=== PATIENT | male | born 1940 | race Caucasian/White ===

== ENCOUNTER 2017-07-06 10:08 | Day surgery (SDC) | payer OTHER ==
--- NOTE | 2017-07-06 11:48 | PDANEPAE ---
ANE History of Present Illness colon ca s/f polp resection ANE Past Medical History - Cardiovascular History Hx Hypertension: No Hx Arrhythmias: No Hx Chest Pain: No Hx Coronary Artery / Peripheral Vascular Disease: No Hx CHF / Valvular Disease: No Hx Palpitations: No - Pulmonary History Hx COPD: No Hx Asthma/Reactive Airway Disease: No Hx Recent Upper Respiratory Infection: No Hx Oxygen in Use at Home: No Hx Sleep Apnea: No Sleep Apnea Screening Result - Last Documented: Negative - Neurologic History Hx Cerebrovascular Accident: No Hx Seizures: No Hx Dementia: No - Endocrine History Hx Diabetes: No - Renal History Hx Renal Disorders: Yes Renal History Comment: NOCTURIA - Neurological & Psychiatric Hx Hx Neurological and Psychiatric Disorders: Yes Neurological / Psychiatric History Comment: SCHIZOPHRENIC - Cancer History Hx Cancer: Yes Cancer History Comment: COLON - Congenital Disorder History Hx Congenital Disorders: No - GI History Hx Gastrointestinal Disorders: Yes Gastrointestinal History Comment: HX OF COLON CA AND POLYPS - Other Health History Other Health History: 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 COLECTOMY FOR CA. COLONOSCOPY. TONSILLECTOMY ANE Review of Systems Review of Systems: - Exercise capacity METS (RN): 4 METS ANE Patient History - Allergies Allergies/Adverse Reactions: Penicillins Allergy (Verified 05/26/17 13:42) - Home Medications Home medications: home medication list seen and reviewed Home Medications: Risperdal HS 05/26/17 [Last Taken 07/04/17] - NPO status NPO Status: no food or drink >8 hours NPO Since - Liquids (Date): 07/06/17 NPO Since - Liquids (Time): 02:15 NPO Since - Solids (Date): 07/04/17 - Anes Hx Anes Hx: no prior problems - Smoking Hx Smoking Status: Never smoked - Alcohol Use Alcohol Use: None - Family Anes Hx Family Anes Hx: none ANE Labs/Vital Signs - Vital Signs Blood Pressure: 124/79 Heart Rate: 79 Respiratory Rate: 20 O2 Sat (%): 96 Height: 182.88 cm Weight: 90.718 kg ANE Physical Exam - Airway Neck exam: FROM Mallampati Score: Class 2 Mouth exam: normal dental/mouth exam - Pulmonary Pulmonary: no respiratory distress - Cardiovascular Cardiovascular: regular rate and rhythym - ASA Status ASA Status: II ANE Anesthesia Plan Anesthesia Plan: GA with mask (Propofol)
[2017-07-06] MEDS ORDERED: fentaNYL 100 MCG/2 ML INJ ONE (11:55)
[2017-07-06] MEDS ORDERED: LIDOCAINE 2% 100 MG/5 ML SYR ONE (11:55)
[2017-07-06] MEDS ORDERED: PROPOFOL/EMULSION 500 MG/50 ML BOTTLE IV ONE (11:55)
[2017-07-06] MEDS ORDERED: PHENYLEPHRINE HCL 100 MCG/ML SYR ONE ×2 (12:07)
[2017-07-06] MEDS ORDERED: LABETALOL HCL 50 MG/10 ML SYR IVP PRN (12:30)
[2017-07-06] MEDS ORDERED: ALBUTEROL 3 ML DEYVIAL IH PRN (12:30)
[2017-07-06] MEDS ORDERED: ONDANSETRON 4 MG/2 ML VIAL IVP PRN (12:30)
[2017-07-06] MEDS ORDERED: MEPERIDINE 25 MG/ML SYR IVP PRN (12:30)
[2017-07-06] MEDS ORDERED: DEXAMETHASONE 4 MG/ML VIAL IVP PRN (12:30)
[2017-07-06] MEDS ORDERED: METOCLOPRAMIDE 10 MG/2 ML VIAL IVP PRN (12:30)
[2017-07-06] MEDS ORDERED: fentaNYL 100 MCG/2 ML INJ IVP PRN (12:30)
[2017-07-06] MEDS ORDERED: PROMETHAZINE HCL 25 MG/ML INJ IVP PRN (12:30)
[2017-07-06] MEDS ORDERED: NALOXONE HCL 0.4 MG/ML INJ IVP PRN (12:30)
[2017-07-06] MEDS ORDERED: LR 500 ML IV PRN (12:30)
[2017-07-06] MEDS ORDERED: INDOMETHACIN 50 MG SUPP PR PRN (12:53)
--- NOTE | 2017-07-06 12:53 | PDGENHP ---
History & Physical Chief Complaint: polyp History of Present Illness: 76 year old male presents for EMR of a complex as polyp Pertinent Past, Social, Family History: PMHx: schizo. FamHx: polyps. SoHx: no tobacco Relevant Physical Exam: HEENT: anicteric. CV: RRR +s1s2. Lungs: CTAB. Abd: soft, nt, + bs Cardiorespiratory Assessment: asa 2 Mall2
[2017-07-06] MEDS ORDERED: NS 500 ML IV SCH (13:00)
--- NOTE | 2017-07-06 13:06 | GIREPORT ---
[facility] - Endoscopy Department Patient Name: Sanjeev Murdock Procedure Date: 07/06/2017 9:14 AM Patient Type: Outpatient Attending / ER Physician: Carl Barrientos MD Procedure: Colonoscopy Indications: High risk colon cancer surveillance: Personal history of colonic polyps Patient Profile: 76 year old male presents for EMR of a complex polyp in his ascending c olon. Providers: Carl Barrientos MD Medicines: Monitored Anesthesia Care Complications: No immediate complications. Estimated blood loss: Minimal. Description of Procedure: After obtaining informed consent, the scope was passed under direct vision. Throughout the proce dure, the patient's blood pressure, pulse, and oxygen saturations were monitored continuously. The Colonoscope with irrigation channel was introduced through the anus and advanced to the cecum, identified by appendiceal orifice and ileocecal valve. The colonoscopy was performed without difficulty. The patient tolerated the procedure well. The quality of the bowel preparation was g ood. The ileocecal valve, appendiceal orifice, and rectum were photographed. Findings: The perianal and digital rectal examinations were normal. Pertinent negatives include no palpabl e rectal lesions. Diverticula were found in the sigmoid colon and descending colon. A 30 x 40 mm polyp was found in the proximal ascending colon. The polyp was carpet-like. The dipesh yp was removed with a lift and cut technique using a hot snare. The polyp was lifted with 4 cc of f luid in different areas. The polyp was removed with a piecemeal technique using a hot snare. Resectio n was complete, and retrieval was complete. APC was utilized on the edges. The polyp was technically challenging to remove due to its location and due to this difficulty Resolution clips could not be placed due to its difficult location. Estimated Blood Loss: Estimated blood loss was minimal. Post Op Diagnosis: - Diverticulosis in the sigmoid colon and in the descending colon. - One 30 mm polyp in the proximal ascending colon, removed using lift a nd cut and a hot snare and removed piecemeal using a hot snare. Resected a nd retrieved. Recommendation: - Discharge patient to home (with escort). - No aspirin, ibuprofen, naproxen, or other non-steroidal anti-inflamma tory drugs for 2 weeks. - Continue present medications. - Resume previous diet. - Repeat colonoscopy in 3 months for surveillance after piecemeal polypectomy with APC. - Await pathology results. - Thank you for allowing me to participate in the care of your patient. Attending Participation: I personally performed the entire procedure. Carl Barrientos MD Carl Barrientos MD 07/06/2017 1:06:38 PM Number of Addenda: 0 Note Initiated On: 07/06/2017 9:14 AM Total Procedure Duration Time 0 hours 42 minutes 32 seconds [email or web address]
--- NOTE | 2017-07-06 13:31 | POSTANESTH ---
Post Anesthetic Evaluation Cardiovascular Status: Normal, Stable Respiratory Status: Normal, Stable Level of Consciousness/Mental Status: Can Participate in Eval, Mildly Sleepy, Arousable Pain Control: Adequate, Prn Tx Ordered Nausea/Vomiting Control: Adequate, Prn Tx Ordered Complications Possibly Related to Anesthesia: None Noted
[2017-07-06 14:36] VITALS: BP 124/70; PULSE 56; RESP 20; O2SAT 95
[2017-07-06 15:13] VITALS: TEMP 96.7
== END 2017-07-06 15:24 | disposition home or self-care (01) ==
LOC: FSGY 10:08
PROVIDERS: ATTEND Internal Medicine Gastroenterology
PROC: 0DBK8ZX Excision of Ascending Colon, Via Natural or Artificial Opening Endoscopic, Diagnostic (ICD-10-PCS; principal; 2017-07-06 11:45)
DX: D12.2 Benign neoplasm of ascending colon (principal); K57.30 Diverticulosis of large intestine without perforation or abscess without bleeding
CPT/HCPCS: J2001; J2370; J2704; J3010

== ENCOUNTER 2018-03-22 10:56 | Day surgery (SDC) | payer OTHER ==
[2018-03-22] MEDS ORDERED: LR 1,000 ML IV ONE (11:15)
[2018-03-22] MEDS ORDERED: LIDOCAINE 1% 2 ML INJ ID PRN (11:15)
[2018-03-22] MEDS ORDERED: PROPOFOL 200 MG/20 ML VIAL ONE ×2 (12:20→13:03)
[2018-03-22] MEDS ORDERED: NALOXONE HCL 0.4 MG/ML INJ IVP PRN (12:24)
[2018-03-22] MEDS ORDERED: LR 500 ML IV PRN (12:24)
[2018-03-22] MEDS ORDERED: ONDANSETRON 4 MG/2 ML VIAL IVP PRN (12:24)
--- NOTE | 2018-03-22 12:24 | PDANEPAE ---
ANE Past Medical History - Cardiovascular History Hx Hypertension: No Hx Arrhythmias: No Hx Chest Pain: No Hx Coronary Artery / Peripheral Vascular Disease: No Hx CHF / Valvular Disease: No Hx Palpitations: No - Pulmonary History Hx COPD: No Hx Asthma/Reactive Airway Disease: No Hx Recent Upper Respiratory Infection: No Hx Oxygen in Use at Home: No Hx Sleep Apnea: No Sleep Apnea Screening Result - Last Documented: Negative - Neurologic History Hx Cerebrovascular Accident: No Hx Seizures: No Hx Dementia: No - Endocrine History Hx Diabetes: No Obesity: moderate - Renal History Hx Renal Disorders: No Renal History Comment: NOCTURIA - Liver History Hx Hepatic Disorders: No - Neurological & Psychiatric Hx Hx Neurological and Psychiatric Disorders: Yes Neurological / Psychiatric History Comment: SCHIZOPHRENIC - Cancer History Hx Cancer: Yes Cancer History Comment: COLON - Congenital Disorder History Hx Congenital Disorders: No - GI History Hx Gastrointestinal Disorders: Yes Gastrointestinal History Comment: HX OF COLON CA AND POLYPS - Other Health History Other Health History: 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 dentures, pt does not use - Chronic Pain History Chronic Pain: Yes (right knee) - Surgical History Prior Surgeries: MARIA ELENA CATARACT. COLECTOMY FOR CA. COLONOSCOPY. TONSILLECTOMY ANE Review of Systems Review of Systems: - Exercise capacity METS (RN): 4 METS ANE Patient History - Allergies Allergies/Adverse Reactions: Penicillins Allergy (Verified 03/19/18 17:50) Other-Enter Comments - Home Medications Home medications: home medication list seen and reviewed Home Medications: Risperdal 05/26/17 [Last Taken 03/20/18] Ibuprofen 600 mg PRN 03/22/18 [Last Taken 03/19/18] - NPO status NPO Status: no food or drink >8 hours NPO Since - Liquids (Date): 03/22/18 NPO Since - Liquids (Time): 03:00 NPO Since - Solids (Date): 03/20/18 - Anes Hx Anes Hx: no prior problems - Smoking Hx Smoking Status: Never smoked - Family Anes Hx Family Hx Anesthesia Complications: none ANE Labs/Vital Signs - Vital Signs Blood Pressure: 121/80 Heart Rate: 89 Respiratory Rate: 12 O2 Sat (%): 94 Height: 182.88 cm Weight: 99.79 kg ANE Physical Exam - Airway Neck exam: FROM Mallampati Score: Class 2 Mouth exam: poor dentition - Pulmonary Pulmonary: no respiratory distress, no rales or rhonchi - Cardiovascular Cardiovascular: regular rate and rhythym, no murmur, rub, or gallop - ASA Status ASA Status: II ANE Anesthesia Plan Anesthesia Plan: GA with mask
--- NOTE | 2018-03-22 12:35 | PDGENHP ---
History & Physical Chief Complaint: hx polyps/CRC History of Present Illness: 77 year old male presents for surveillance of a complex asc. colon polyp Pertinent Past, Social, Family History: SoHx: No cigs. pMHx: Schizophrenia. PSurgHx: Tonsillectomy Relevant Physical Exam: HEENT: Anicteric. CV; RRR +s1s2. Lungs: CTAB. Abd: soft, nt , + BS Cardiorespiratory Assessment: ASA 2
[2018-03-22] MEDS ORDERED: EPINEPHrine 1 MG/ML INJ ONE (12:40)
--- NOTE | 2018-03-22 13:36 | POSTANESTH ---
Post Anesthetic Evaluation Cardiovascular Status: Normal, Stable, Similar to Pre-Op Cond Respiratory Status: Normal, Stable, Similar to Pre-op Cond. Level of Consciousness/Mental Status: Moderately Sleepy Pain Control: Adequate, Prn Tx Ordered Nausea/Vomiting Control: Adequate, Prn Tx Ordered Complications Possibly Related to Anesthesia: None Noted
--- NOTE | 2018-03-22 13:55 | GIREPORT ---
[facility] - Endoscopy Department Patient Name: Sanjeev Murdock Procedure Date: 03/22/2018 12:35 PM Patient Type: Outpatient Attending / ER Physician: Carl Barrientos MD Procedure: Colonoscopy Indications: High risk colon cancer surveillance: Personal history of colonic polyps Patient Profile: 77 year old male with a history of complex polyps presents for surveill ance colonoscopy. Providers: Carl Barrientos MD Medicines: Monitored Anesthesia Care Complications: No immediate complications. Estimated blood loss: Minimal. Description of Procedure: After obtaining informed consent, the scope was passed under direct vis ion. Throughout the procedure, the patient's blood pressure, pulse, and oxyg en saturations were monitored continuously. The Colonoscope with irrigatio n channel was introduced through the anus and advanced to the cecum, identified by appendiceal orifice and ileocecal valve. The colonoscopy was performed without difficulty. The patient tolerated the procedure well. The quality of the bowel preparation was good. The ileocecal valve, appendi ceal orifice, and rectum were photographed. Findings: The perianal and digital rectal examinations were normal. Pertinent negatives include no palpable rectal lesions. A 15 mm polyp was found in the cecum. The polyp was sessile. The polyp was removed with a hot snare. Resection and retrieval were complete. A 4 mm polyp was found in the ascending colon. The polyp was sessile. T he polyp was removed with a cold biopsy forceps. Resection and retrieval w ere complete. A 15 mm remnant polyp was found in the ascending colon. The polyp was sessile. The polyp was removed with a piecemeal technique using a cold snare. Resection and retrieval were complete. A 4 mm polyp was found in the transverse colon. The polyp was sessile. The polyp was removed with a cold biopsy forceps. Resection and retrieval w ere complete. Multiple diverticula were found in the sigmoid colon and descending col on. Estimated Blood Loss: Estimated blood loss was minimal. Post Op Diagnosis: - One 15 mm polyp in the cecum, removed with a hot snare. Resected and retrieved. - One 4 mm polyp in the ascending colon, removed with a cold biopsy for ceps. Resected and retrieved. - One 15 mm polyp in the ascending colon, removed piecemeal using a col d snare. Resected and retrieved. - One 4 mm polyp in the transverse colon, removed with a cold biopsy forceps. Resected and retrieved. - Diverticulosis in the sigmoid colon and in the descending colon. Recommendation: - Discharge patient to home (with escort). - Resume previous diet. - Continue present medications. - Repeat colonoscopy in 1 year for surveillance due to piecemeal resect ion of remnant polyp. - Await pathology results. - Thank you for allowing me to participate in the care of your patient. Attending Participation: I personally performed the entire procedure. Carl Barrientos MD Carl Barrientos MD 03/22/2018 1:54:55 PM This report has been signed electronicallyCarl Barrientos MD Number of Addenda: 0 Note Initiated On: 03/22/2018 12:35 PM Total Procedure Duration Time 0 hours 46 minutes 34 seconds [email or web address]}
[2018-03-22 14:39] VITALS: BP 135/71
== END 2018-03-22 14:50 | disposition home or self-care (01) ==
LOC: FSGY 10:56
PROVIDERS: ATTEND Internal Medicine Gastroenterology
DX: Z12.11 Encounter for screening for malignant neoplasm of colon (principal); K57.32 Diverticulitis of large intestine without perforation or abscess without bleeding; D12.0 Benign neoplasm of cecum; D12.2 Benign neoplasm of ascending colon; D12.3 Benign neoplasm of transverse colon; Z87.19 Personal history of other diseases of the digestive system
CPT/HCPCS: J0171; J2704

== ENCOUNTER → 2019-02-07 | Outpatient (CLI) | payer OTHER | LOC: BHFA 13:30 | PROVIDERS: ATTEND Internal Medicine Cardiovascular Disease | DX: R07.9 Chest pain, unspecified (principal); R94.31 Abnormal electrocardiogram [ECG] [EKG] | CPT/HCPCS: 78452; 93017; A9500; J2785 ==

== ENCOUNTER 2019-02-18 09:02 | Day surgery (SDC) | payer OTHER ==
[2019-02-18] MEDS ORDERED: ASPIRIN EC 325 MG TAB PO ONE ×2 (09:12→09:20)
[2019-02-18] MEDS ORDERED: DIAZEPAM 5 MG TAB PO ONE (09:12)
[2019-02-18] MEDS ORDERED: NS 1,000 ML IV ONE (09:12)
[2019-02-18] MEDS ORDERED: FAMOTIDINE 20 MG TAB PO ONE (09:12)
[2019-02-18] MEDS ORDERED: diphenhydrAMINE 25 MG CAP PO ONE ×2 (09:12→09:19)
[2019-02-18] MEDS ORDERED: FAMOTIDINE 20 MG TAB ONE (09:20)
[2019-02-18] MEDS ORDERED: DIAZEPAM 5 MG TAB ONE (09:20)
[2019-02-18 09:51] LABS: PLATELET COUNT 188 10^3/uL (150-400)
[2019-02-18 09:59] LABS: INR 1.03 (0.83-1.16); PROTIME(PATIENT) 13.1 SEC (12.0-15.0)
--- NOTE | 2019-02-18 10:46 | PDHPUP ---
History & Physical Update H&P update statement: This history and physical update is based on an assessment of the patient which was completed after admission or registration (within 24 hours), but prior to the surgery/procedure. Pt presents for [facility] in the setting of ongoing chest pain and abnormal nuclear stress test with inferior ischemia. Risks and benefits discussed in detail. Agreeable to pursue. H&P update: no change in patient's condition since H&P completed (Pt with new onset of chest pain this am.)
--- NOTE | 2019-02-18 10:47 | PDPROPOC ---
Sedation Plan of Care Sedation Plan of Care: vital signs stable, mental status noted, patient educated of risks, benefits, alternatives, patient can tolerate sedation ASA Classification: ASA 2 Planned drugs: fentanyl, midazolam Mallampati Score: Class 2 Mallampati Reference Image: Patient passed 3-3-2 rule?: Yes
[2019-02-18] MEDS ORDERED: fentaNYL 100 MCG/2 ML INJ ONE (11:13)
[2019-02-18] MEDS ORDERED: MIDAZOLAM 2 MG/2 ML VIAL ONE (11:14)
[2019-02-18] MEDS ORDERED: VERAPAMIL 5 MG/2 ML VIAL ONE (11:14)
[2019-02-18] MEDS ORDERED: HEPARIN 10,000 UNIT/10 ML MDV (1,000 UNIT/ML) ONE (11:14)
[2019-02-18] MEDS ORDERED: LIDOCAINE 1% 5 ML SDV ONE (11:14)
[2019-02-18] MEDS ORDERED: IOPAMIDOL (ISOVUE 370) 100 ML BTL IV ONE (11:14)
--- NOTE | 2019-02-18 13:33 | CPIP ---
[f rep st] INVASIVE CARDIAC PROCEDURE DATE OF PROCEDURE: 02/18/2019 PROCEDURE PERFORMED: Diagnostic left heart catheterization. INDICATION FOR PROCEDURE: Patient with complaints of exertional chest pain and shortness of breath, coupled with abnormal nuclear stress test with evidence of inferior wall ischemia. DESCRIPTION OF PROCEDURE: After informed consent was obtained for left heart catheterization, percut aneous coronary intervention, and sedation, the patient was brought to the cardiac catheterization la b where he was prepped and draped in a sterile fashion. Left radial approach was used. Radial arter y sheath was placed without complications. Under direct visualization, wire was passed into the thor acic aorta down to the aortic root. The patient was given heparin 5000 units, as well as verapamil p rior to start of the catheter insertion. JR3.5 was used to cannulate the right coronary artery. Images were obtained in multiple projections of the right coronary artery. JR3.5 catheter was exchanged over a guidewire for a JL4 catheter. JL4 catheter was used to take images of the left coronary anatomy in multiple projections. JL4 catheter was exchanged over a guidewire for an angled pigtail catheter. Angled pigtail catheter was used to cross the aortic valve. Left ventriculogram was performed. LVEDP was assessed. Aortic valve gradie nt was assessed on pull-back. No evidence of aortic gradient. Catheter was removed over wire withou t complications. FINDIN. Left main trifurcates into a left anterior descending, ramus and circumflex artery. There is no evidence of coronary disease within the left main. 2. Left anterior descending is free of coronary artery disease. There is a moderate 1st and 2nd marcie gonal branch with no evidence of coronary disease. 3. The circumflex vessel is a small nondominant vessel with no evidence of coronary disease. There is a large caliber ramus branch with no evidence of coronary disease. 4. The right coronary artery is a dominant vessel with 30% proximal stenosis with 20% mid stenosis a nd mild lumen irregularities in the distal vessel. There is no evidence of flow-limiting coronary di sease. HEMODYNAMICS: LVEF 60% to 65%. Aortic valve gradient none. CONCLUSION: 1. Mild nonobstructive coronary artery disease. 2. Normal left ventricular function. PLAN: 1. Patient will recover in CVC. 2. Patient will be discharged home. 3. Patient will be scheduled for followup in our office postprocedure. /[id number]/MODL
--- NOTE | 2019-02-25 10:47 | CPEKG ---
Test Reason : OPEN Blood Pressure : / mmHG Vent. Rate : 067 BPM Atrial Rate : 067 BPM P-R Int : 225 ms QRS Dur : 141 ms QT Int : 440 ms P-R-T Axes : 038 -31 094 degrees QTc Int : 465 ms Sinus rhythm Prolonged ID interval Left bundle branch block Confirmed by Sanjeev Carney ([id number]) on 02/25/2019 10:46:48 AM Referred By: Doe Wilson Confirmed By:Sanjeev Carney
== END 2019-02-18 15:20 | disposition home or self-care (01) ==
LOC: FCATH 09:02
PROVIDERS: ATTEND Internal Medicine Cardiovascular Disease
DX: I25.10 Atherosclerotic heart disease of native coronary artery without angina pectoris (principal); I44.7 Left bundle-branch block, unspecified; R06.09 Other forms of dyspnea
CPT/HCPCS: 93458; C1769; J1644; J2250; J3010; Q9967